=== PATIENT | male | born 1975 | race Caucasian/White ===

== ENCOUNTER 2017-11-13 17:30 | Emergency (ER) | payer OTHER ==
--- NOTE | 2017-11-13 17:47 | PDOC ---
History of Present Illness - History of Present Illness Initial Comments: 11/13/17 19:21 Patient is a 42 M, with PMHx of , who presents with right calf pain since SundayNovember 04. Patient states that he was walking on the track and afterwards his calves were extremely sore and he is unable to ambulate without limping. 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 His Dr. wanted him to have an ultrasound to rule out DVT. Line Patrolman: Dr. Bundy. Social Hx: smoking, drinking, illicit drug use. <Keren Michele - Last Filed: 11/13/17 19:25> - General History Source: Patient <Kirk Hsu - Last Filed: 11/14/17 15:33> - General Chief Complaint: Pain Stated Complaint: RT LEG CALF PAIN,SWELLING Time Seen by Provider: 11/13/17 17:39 Past History <Keren Michele - Last Filed: 11/13/17 19:25> <Kirk Hsu - Last Filed: 11/14/17 15:33> - Past Medical History Allergies/Adverse Reactions: Allergies Allergy/AdvReac Type Severity Reaction Status Date / Time No Known Allergies Allergy Verified 11/13/17 17:31 Home Medications: Ambulatory Orders Fluoxetine HCl [Prozac -] 60 mg PO DAILY 11/13/17 Fluvoxamine Maleate [Luvox -] 300 mg PO HS 11/13/17 Haloperidol 0.5 mg PO DAILY 11/13/17 Lorazepam [Ativan] 0.5 mg PO PRN PRN 11/13/17 Lurasidone HCl [Latuda] 120 mg PO HS 11/13/17 Metoprolol Succinate 12.5 mg PO DAILY 11/13/17 Quinapril HCl 20 mg PO DAILY 11/13/17 Review of Systems - Review of Systems Comments:: 11/13/17 19:21 CONSTITUTIONAL: Absent: fever, no chills, no fatigue EYES: Absent: visual changes ENT: Absent: ear pain, no sore throat CARDIOVASCULAR: Absent: chest pain, no palpitations RESPIRATORY: Absent: cough, no SOB GI: Absent: abdominal pain, no nausea, no vomiting, no constipation, no diarrhea GENITOURINARY: Absent: dysuria, no frequency, no hematuria MUSCULOSKELETAL: Present:right calf pain Absent: back pain, no arthralgia SKIN: Absent: rash <Keren Michele - Last Filed: 11/13/17 19:25> *Physical Exam - Vital Signs Last Vital Signs Temp Pulse Resp BP Pulse Ox 98.1 F 77 20 127/83 96 11/13/17 17:31 11/13/17 17:31 11/13/17 17:31 11/13/17 17:31 11/13/17 17:31 - Physical Exam Comments: 11/13/17 19:23 GENERAL: Well-appearing, well-nourished. No apparent distress. HEENT: Normocephalic, atraumatic. PERRL, EOM intact. CARDIOVASCULAR: Normal S1, S2. Regular rate and rhythm. PULMONARY: Clear to auscultation bilaterally. ABDOMEN: Soft, obese, non-distended, non-tender. EXTREMITIES: Moderate edema right calf. Good peripheral pulses. Pamela's - negative. SKIN: Warm, dry. No rash NEUROLOGICAL: No focal neurological deficits. <Keren Michele - Last Filed: 11/13/17 19:25> Medical Decision Making - Medical Decision Making 11/13/17 19:25 US - negative for DVT. <Keren Michele - Last Filed: 11/13/17 19:25> *DC/Admit/Observation/Transfer - Attestations Scribe Attestion: 11/13/17 19:25 Documentation prepared by Keren Michele, acting as medical biller coder for Kirk Hsu MD. <Keren Michele - Last Filed: 11/13/17 19:25> - Discharge Dispostion Admit: No <Kirk Hsu - Last Filed: 11/14/17 15:33> Diagnosis at time of Disposition: Leg sprain - Discharge Dispostion Disposition: HOME Condition at time of disposition: Stable - Patient Instructions Printed Discharge Instructions: DI for Calf Muscle Strain Additional Instructions: Advil for pain
[2017-11-13 18:03] VITALS: BP 127/83; PULSE 77; TEMP 98.1; BMI 38.6
== END 2017-11-13 19:32 | disposition home or self-care (01) ==
LOC: FER 17:30
DX: S86.911A Strain of unspecified muscle(s) and tendon(s) at lower leg level, right leg, initial encounter (principal); X58.XXXA Exposure to other specified factors, initial encounter; Y93.89 Activity, other specified; Y92.9 Unspecified place or not applicable
CPT/HCPCS: 93971-TC; 99282-25

== ENCOUNTER 2021-06-18 01:26 | Emergency (ER) | payer OTHER ==
[2021-06-18 01:33] VITALS: BP 128/83; PULSE 60; TEMP 99.3; BMI 38.7
[2021-06-18] MEDS ORDERED: IBUPROFEN 600 MG TABLET (FP) PO ONE ×2 (01:46→01:49)
== END 2021-06-18 01:52 | disposition home or self-care (01) ==
LOC: FER 01:26
DX: S16.1XXA Strain of muscle, fascia and tendon at neck level, initial encounter (principal); V89.2XXA Person injured in unspecified motor-vehicle accident, traffic, initial encounter; Y92.9 Unspecified place or not applicable
CPT/HCPCS: 99283-25

== ENCOUNTER 2021-11-18 00:26 | Emergency (ER) | payer BC, OTHER ==
[2021-11-18 00:32] VITALS: BP 138/65; PULSE 74; TEMP 99; BMI 35.6
[2021-11-18 01:22] LABS: BASO % 0.3 % (0-2.0); EOS % 1.9 % (0-4.5); HEMATOCRIT 37.6 % (35.4-49); HEMOGLOBIN 13.2 GM/dL (11.7-16.9); LYMPH % 20.3 % (8-40); MCH 30.8 pg (25.7-33.7); MCHC 35.2 g/dl (32.0-35.9); MEAN CELL VOLUME 87.6 fl (80-96); MEAN PLT VOLUME 7.5 fl (7.5-11.1); MONO % 9.6 % (3.8-10.2); NEUT % 67.9 % (42.8-82.8); PLATELET COUNT 272 10^3/uL (134-434); RDW 13.1 % (11.9-15.9); WHITE BLOOD COUNT 7.8 K/mm3 (4.0-10.0)
[2021-11-18 01:40] LABS: CALCIUM 9.3 mg/dL (8.5-10.1)
[2021-11-18 01:41] LABS: BLOOD UREA NITROGEN 33.5 mg/dL (7-18); MAGNESIUM 2.3 mg/dL (1.8-2.4)
[2021-11-18 01:44] LABS: CREATININE 0.9 mg/dL (0.55-1.3)
[2021-11-18 01:46] LABS: BILIRUBIN,TOTAL 0.4 mg/dL (0.2-1); TOT PROT 7.8 g/dl (6.4-8.2)
== END 2021-11-18 03:54 | disposition home or self-care (01) ==
LOC: FER 00:26
DX: R07.9 Chest pain, unspecified (principal)
CPT/HCPCS: 36415; 71046-TC-FY; 80053; 82550; 82553; 83735; 84484; 85025; 93005; 99285-25

== ENCOUNTER 2023-06-24 23:21 | Emergency (ER) | payer BC ==
[2023-06-24 23:46] VITALS: BP 125/77; PULSE 63; RESP 16; TEMP 98.3; BMI 36.1
[2023-06-25 01:15] LABS: BASO % 0.4 % (0-2.0); EOS % 2.4 % (0-4.5); HEMATOCRIT 36.3 % (35.4-49); HEMOGLOBIN 12.5 GM/dL (11.7-16.9); LYMPH % 23.9 % (8-40); MCH 29.6 pg (25.7-33.7); MCHC 34.4 g/dl (32.0-35.9); MEAN CELL VOLUME 86.2 fl (80-96); MEAN PLT VOLUME 7.8 fl (7.5-11.1); MONO % 9.6 % (3.8-10.2); NEUT % 63.7 % (42.8-82.8); PLATELET COUNT 277 10^3/uL (134-434); RBC 4.22 M/mm3 (4.00-5.60); RDW 13.4 % (11.9-15.9); WHITE BLOOD COUNT 6.8 K/mm3 (4.0-10.0)
[2023-06-25 01:28] LABS: POTASSIUM 3.7 mmol/L (3.5-5.1)
[2023-06-25 01:30] LABS: BLOOD UREA NITROGEN 38.9 mg/dL (7-18)
[2023-06-25 01:33] LABS: CREATININE 1.1 mg/dL (0.55-1.3)
[2023-06-25 01:35] LABS: BILIRUBIN,TOTAL 0.3 mg/dL (0.2-1); TOT PROT 7.5 g/dl (6.4-8.2)
== END 2023-06-25 02:14 | disposition home or self-care (01) ==
LOC: FER 23:21
DX: M94.0 Chondrocostal junction syndrome [Tietze] (principal)
CPT/HCPCS: 36415; 71045-TC-FY; 80053; 84484; 85025; 93005; 99285-25

== ENCOUNTER 2023-07-10 22:47 | Emergency (ER) | payer BC ==
[2023-07-10 22:56] VITALS: BP 129/77; PULSE 72; RESP 16; TEMP 98.7; BMI 37.2
== END 2023-07-11 00:23 | disposition home or self-care (01) ==
LOC: FER 22:47
DX: R22.42 Localized swelling, mass and lump, left lower limb (principal)
CPT/HCPCS: 93971-TC; 99284-25

== ENCOUNTER 2024-04-06 20:50 | Emergency (ER) | payer BC ==
[2024-04-06 21:01] VITALS: BP 124/79; PULSE 64; RESP 18; TEMP 98.2; BMI 33.9
[2024-04-06] MEDS ORDERED: METHOCARBAMOL 500 MG TABLET ONE (21:10)
[2024-04-06] MEDS ORDERED: DEXAMETHASONE 4 MG TABLET (FP) ONE (21:10)
[2024-04-06] MEDS ORDERED: LIDOCAINE 5% TOPICAL PATCH ONE (21:11)
[2024-04-06] MEDS ORDERED: IBUPROFEN 600 MG TABLET (FP) PO ONE (21:13)
[2024-04-06] MEDS: LIDOCAINE 5% TOPICAL PATCH TP ONE (21:16)
[2024-04-06] MEDS: IBUPROFEN 600 MG TABLET (FP) PO ONE (21:16)
[2024-04-06] MEDS: METHOCARBAMOL 500 MG TABLET PO ONE (21:17)
[2024-04-06] MEDS: DEXAMETHASONE 4 MG TABLET (FP) PO ONE (21:17)
[2024-04-06] MEDS ORDERED: LACTULOSE 20 GM/30 ML UDC (FOR ORAL USE ONLY) ONE (22:39)
[2024-04-06] MEDS: LACTULOSE 20 GM/30 ML UDC (FOR ORAL USE ONLY) PO ONE (22:41)
[2024-04-07] MEDS ORDERED: LIDOCAINE PATCH REMOVAL MC ONE (10:00)
== END 2024-04-06 22:47 | disposition home or self-care (01) ==
LOC: FER 20:50
DX: M54.32 Sciatica, left side (principal); M19.90 Unspecified osteoarthritis, unspecified site; M79.89 Other specified soft tissue disorders
CPT/HCPCS: 72131-TC; 93971-TC; 99284-25

== ENCOUNTER 2024-10-11 19:49 | Emergency (ER) | payer BC ==
[2024-10-11 20:10] VITALS: BP 145/76; PULSE 61; RESP 16; TEMP 98.1; BMI 34.0
[2024-10-11] MEDS ORDERED: METHOCARBAMOL 500 MG TABLET ONE (20:18)
[2024-10-11] MEDS ORDERED: LIDOCAINE 5% TOPICAL PATCH ONE (20:18)
[2024-10-11] MEDS: METHOCARBAMOL 500 MG TABLET PO ONE (20:21)
[2024-10-11] MEDS: LIDOCAINE 5% TOPICAL PATCH TP ONE (20:21)
[2024-10-11] MEDS ORDERED: DEXAMETHASONE 4 MG TABLET (FP) ONE (20:22)
[2024-10-11] MEDS: DEXAMETHASONE 4 MG TABLET (FP) PO ONE (20:24)
[2024-10-11] MEDS ORDERED: LIDOCAINE PATCH REMOVAL MC SCH (22:00)
== END 2024-10-11 20:57 | disposition home or self-care (01) ==
LOC: FER 19:49
DX: M54.42 Lumbago with sciatica, left side (principal)
CPT/HCPCS: 99283-25

== ENCOUNTER 2025-03-29 14:13 | Emergency (ER) | payer BC ==
[2025-03-29 14:51] VITALS: BP 111/79; PULSE 88; RESP 19; TEMP 98.8; BMI 34.8
== END 2025-03-29 15:25 | disposition home or self-care (01) ==
LOC: FER 14:13
DX: K64.4 Residual hemorrhoidal skin tags (principal); R19.7 Diarrhea, unspecified
CPT/HCPCS: 82272; 99284-25